=== PATIENT | female | born 2005 | race Two or more races ===

== ENCOUNTER 2025-07-25 09:54 | Emergency (ER) | payer OTHER ==
[~2025-07-25] VITALS: Ht 162.6 cm; Wt 69.0 kg
[2025-07-25 11:47] VITALS: BP 122/69; TEMP 97.2; O2SAT 100
== END 2025-07-25 12:08 | disposition home or self-care (01) ==
LOC: M ED 09:54
DX: R05.9 Cough, unspecified (principal); B34.1 Enterovirus infection, unspecified; F17.290 Nicotine dependence, other tobacco product, uncomplicated